=== PATIENT | female | born 1990 | race African-American/Black ===

== ENCOUNTER 2018-08-11 13:46 | Emergency (ER) | payer MEDICAID, SELFPAY ==
[2018-08-11 14:25] LABS: #Basophils 0.1 thou/uL (0.0-0.2); #Eosinphils 0.1 thou/uL (0.0-0.7); #Lymphocytes 1.4 thou/uL (1.20-3.40); #Monocytes 0.4 thou/uL (0.11-0.59); #Neutrophils 4.2 thou/uL (1.40-6.50); %Basophils 0.9 % (0.0-1.0); %Eosinophils 2.1 % (0.0-10.0); %Lymphocytes 22.9 % (21.0-51.0); %Monocytes 5.8 % (0.0-10.0); %Neutrophils 68.3 % (42.0-75.0); Hemoglobin 13.6 g/dL (12.0-16.0); Mean Corpuscular HGB CONC 32.2 g/dL (32.0-36.0); Mean Corpuscular Hemoglobin 27.2 pg (27.0-31.0); Mean Corpuscular Volume 84.5 fL (78.0-98.0); Mean Platelet Volume 7.3 fL (7.4-10.4); Platelet Count 316 thou/uL (130-400); RBC Distribution Width 13.7 % (11.5-14.5); Red Blood Cell (RBC) Count 5.01 mill/uL (4.20-5.40); White Blood Cell (WBC) Count 6.1 thou/uL (4.8-10.8)
[2018-08-11 14:40] LABS: Bilirubin Negative (Negative); Blood, Urine Large (Negative); Clarity CLEAR (Clear); Glucose, Urine (Dipstick) Negative (Negative); Leukocyte Negative (Negative); Nitrite Negative (Negative); Protein, Urine (Dipstick) Negative (Neg-Trace); Specific Gravity, Urine 1.012 (1.002-1.036)
[2018-08-11 14:43] LABS: Bacteria/HPF None Seen HPF (None Seen); Hyaline Casts/LPF 0-3 HYALINE CAST LPF (0-3 Hyaline); Pathc Cast-AUWi Flag 0.29 (0-2.49); Pregnancy Test - Urine (BHCG) Negative (Negative); Pregu Control Background? CLEAR/WHITE (CLR/WHITE); Pregu Control Bar Appear? YES (CONTROL BAR); Specific Gravity 1.012 (1.002-1.036); WBC/HPF 0-3 HPF (0-3)
[2018-08-11 14:54] LABS: ALT (SGPT) Less than 7 U/L (8-55); AST (SGOT) 9 U/L (5-34); Albumin 3.7 g/dL (3.5-5.0); Alkaline Phosphatase 49 U/L (40-150); Anion Gap 10 mmol/L (10-20); BUN (Urea Nitrogen) 7 mg/dL (7.0-18.7); Bilirubin, Total 0.4 mg/dL (0.2-1.2); Calc. Creatinine Clearance 0 mL/min (70-130); Carbon Dioxide 25 mmol/L (22-29); Chloride 107 mmol/L (98-107); Estimated GFR-MDRD Greater than 90; Globulin 3.2 g/dL (2.4-3.5); Glucose 105 mg/dL (70-105); Lipase 11 U/L (8-78); Potassium 3.8 mmol/L (3.5-5.1); Protein, Total 6.9 g/dL (6.0-8.3); Sodium 138 mmol/L (136-145)
--- NOTE | 2018-08-11 15:21 | ULT ---
ULTRASOUND PELVIC ULTRASOUND TRANSVAGINAL DOPPLER DUPLEX: DATE: 08/11/18 HISTORY: Left-sided pelvic pain in 28-year-old female. TECHNIQUE: Transabdominal transducer used to evaluate intrapelvic contents using the urinary bladder as an acous tic window. Endovaginal transducer used to visualize intrapelvic contents in greater detail. Color fl ow Doppler and Pulsed Doppler spectral waveform analysis of ovaries. FINDINGS: Uterus is normal in size and shape. Endometrial stripe is of normal thickness. No uterine leiomyoma is identified. Bilateral ovaries are normal in size. Blood flow is demonstrated in both ovaries. No ovarian cyst (defined as 2 cm or greater) is identified. Free fluid is in the cul-de-sac, small to moderate amount. IMPRESSION: 1. Small to moderate amount of free fluid in the cul-de-sac. 2. Otherwise negative. jn [] POS: [facility]
--- NOTE | 2018-08-11 17:04 | ULT ---
ULTRASOUND RETROPERITONEUM COMPLETE: (RENAL) DATE: 08/11/18 HISTORY: Left flank pain and pelvic pain in 28-year-old female. FINDINGS: The right kidney measures 11.5 x 5 x 5.5 cm. The left kidney measures 12 x 6.5 x 6 cm. Both kidneys have normal cortical thickness and normal cortical echogenicity. There is no hydronephrosis. Curso ry images of the urinary bladder demonstrate no gross abnormality. Urinary bladder volume is 130 mL at the time of the scan. On color Doppler images, there is greater degree of blood flow in the left kidney compared to the rig ht. IMPRESSION: 1. Apparent hyperemia of the left kidney. One possibility is left pyelonephritis. CT of abdomen with contrast is available to confirm pyelonephritis, if desired. 2. No hydronephrosis. earl dyson POS: [facility]
== END 2018-08-11 17:18 | disposition home or self-care (01) ==
LOC: ERS 13:46
DX: N12 Tubulo-interstitial nephritis, not specified as acute or chronic (principal); F17.210 Nicotine dependence, cigarettes, uncomplicated
CPT/HCPCS: 36415; 76770; 76856; 80053; 81003; 81015; 81025; 83690; 85025

== ENCOUNTER 2018-11-16 00:35 | Emergency (ER) | payer MEDICAID ==
[2018-11-16] MEDS ORDERED: Ketorolac Tromethamine 30 MG/ML VIAL ONE (02:24)
== END 2018-11-16 02:36 | disposition home or self-care (01) ==
LOC: ERS 00:35
DX: L04.8 Acute lymphadenitis of other sites (principal)
CPT/HCPCS: 99283; J1885

== ENCOUNTER 2020-05-29 18:49 | Emergency (ER) | payer SELFPAY ==
--- NOTE | 2020-05-29 20:42 | RAD ---
PORTABLE CHEST: 05/29/20 HISTORY: Cough and chest wall pain. Heart size and mediastinum are within normal limits. Slight increased markings in the lung bases coul d just be related to overlying soft tissue. Some early infiltrates are difficult to exclude. A PA angie st film may be helpful in assessment. IMPRESSION: Questionable increased markings in the lung bases. This may just be technique related. POS: [facility]
[2020-05-30 03:21] LABS: SARS-CoV-2 MS2 Positive; SARS-CoV-2 N Gene Negative; SARS-CoV-2 S Gene Negative; SARS-CoV-2 by NAA Not Detected (NotDetected); SARS-CoV-2 orf1ab Negative
== END 2020-05-29 23:05 | disposition home or self-care (01) ==
LOC: ERS 18:49
DX: S16.1XXA Strain of muscle, fascia and tendon at neck level, initial encounter (principal); S46.911A Strain of unspecified muscle, fascia and tendon at shoulder and upper arm level, right arm, initial encounter; S29.011A Strain of muscle and tendon of front wall of thorax, initial encounter; R50.9 Fever, unspecified; Z20.828 Contact with and (suspected) exposure to other viral communicable diseases; F17.210 Nicotine dependence, cigarettes, uncomplicated; X58.XXXA Exposure to other specified factors, initial encounter
CPT/HCPCS: 71045; 87635; 87804; U0003

== ENCOUNTER 2020-07-29 04:00 | Emergency (ER) | payer SELFPAY | END 2020-07-29 04:46 | disposition home or self-care (01) | LOC: ERS 04:00 | DX: S00.462A Insect bite (nonvenomous) of left ear, initial encounter (principal); W57.XXXA Bitten or stung by nonvenomous insect and other nonvenomous arthropods, initial encounter; F17.210 Nicotine dependence, cigarettes, uncomplicated | CPT/HCPCS: 69200 ==

== ENCOUNTER 2025-03-22 10:55 | Emergency (ER) | payer SELFPAY | END 2025-03-22 12:34 | disposition home or self-care (01) | LOC: ERS 10:55 | DX: N64.4 Mastodynia (principal) | CPT/HCPCS: 99283 ==